=== PATIENT | female | born 1975 | race Caucasian/White ===

== ENCOUNTER 2016-10-12 05:14 | Day surgery (SDC) | payer OTHER ==
[~2016-10-12] VITALS: Ht 157.5 cm; Wt 88.9 kg
[~2016-10-12 05:14] MED LIST: ACYCLOVIR; ASCORBIC ACID100 MG PO; ASPIRIN81 M2 PO; CELEXA20 MG PO; FLONASE16 G1 BOTH NARES; GLUCOPHAGE XR750 MG PO; GLUCOPHAGE1000 MG PO; HYDROCHLOROTHIA25 MG PO; IRON325 M1 PO; JANUMET 50/51 TABLET PO; JENTADUETO 2.51 EACH PO; MEDROL DOSEPAK4 MG PO; MEGACE20 MG PO; MOTRIN800 MG PO; Motrin PO; Natalcare Rx,Pramile PO; PRILOSEC40 MG PO; PROCARDIA XL60 MG PO; Procardia XL,Adalat PO; TAMIFLU75 MG PO; VIBRAMYCIN100 MG PO; VITAMIN D50000 UNI4 PO; ZOVIRAX400 MG PO; ZYRTEC10 M3 PO
[2016-10-12 06:08] VITALS: BP 160/108
[2016-10-12 06:25] LABS: POINT-OF-CARE METER ID UU14174212
[2016-10-12 10:00] LABS: POINT-OF-CARE METER ID UU13113675
[2016-10-12 11:16] LABS: GLUCOSE 179 mg/dL (70-99)
[2016-10-12 11:17] VITALS: BP 136/58
[2016-10-12 11:34] VITALS: BP 131/72
[2016-10-12 16:00] VITALS: BP 100/53
[2016-10-12 19:00] VITALS: BP 122/68
[2016-10-12 23:58] VITALS: BP 114/58
[2016-10-13 03:20] VITALS: BP 106/53
[2016-10-13 06:31] LABS: POINT-OF-CARE METER ID UU14162508
[2016-10-13 07:14] LABS: HEMATOCRIT 36.1 % (36.0-46.0); MCH 26.7 PG (29.0-34.0); MCV 81.1 FL (83-99); MEAN PLAT.VOLUME 10.5 uM^3 (9.5-12.4); PLATELET COUNT 247 K/uL (156-360); RBC DIS.WIDTH-SD 41.5 % (39-53); RED BLOOD COUNT 4.45 M/uL (3.80-5.20); WHITE BLOOD COUNT 8.5 K/uL (4.1-10.2)
[2016-10-13 07:31] LABS: ANION GAP 9 MEQ/L (2-14); CHLORIDE 104 MEQ/L (99-109); GFR ESTIMATE (CALCULATED) > 59 mL/min/; GLUCOSE 132 mg/dL (70-99); POTASSIUM 4.3 MEQ/L (3.7-5.4); SAMPLE HEMOLYSIS CHECK 0; SAMPLE ICTERIC CHECK 0; SAMPLE LIPEMIA CHECK 0; SODIUM 141 MEQ/L (136-147); UREA NITROGEN (BUN) 11 mg/dL (9-23)
[2016-10-13] MEDS ORDERED: HYDROMORPHONE HC2 MG PO (08:11)
[2016-10-13] MEDS ORDERED: IBUPROFEN800 MG PO (08:11)
[2016-10-13] MEDS ORDERED: REGLAN10 MG PO (08:15)
[2016-10-13 11:29] VITALS: BP 112/60
== END 2016-10-13 11:55 | disposition home or self-care (01) ==
LOC: SDC 05:14 → 2SOUTH 10:02 → 2EAST 10:02 → SDC 14:49 → 2EAST 10-13 11:55
PROVIDERS: Obstetrics & Gynecology
PROC: 0UT97ZZ Resection of Uterus, Via Natural or Artificial Opening (ICD-10-PCS; principal; 2016-10-12)
DX: N92.0 Excessive and frequent menstruation with regular cycle (principal); D25.9 Leiomyoma of uterus, unspecified
CPT/HCPCS: 80048; 82947; 82948; 85027; 88307; 93005; G0378; J0131; J0330; J0690; J1100; J1170; J1815; J2250; J2405; J2710; J7120